=== PATIENT | female | born 1975 | race Caucasian/White ===

== ENCOUNTER 2020-06-12 20:50 | Emergency (ER) | payer OTHER ==
[2020-06-12 21:19] LABS: Bilirubin Negative (Negative); Blood, Urine Negative (Negative); Clarity Clear (Clear); Glucose, Urine (Dipstick) Normal (Negative); Ketone, Urine Negative (Negative); Leukocyte Negative Leu/uL (Negative); Nitrite Negative (Negative); Protein, Urine (Dipstick) Negative (Neg-Trace); Specific Gravity, Urine 1.006 (1.002-1.036); Urobilinogen Normal mg/dL (Less than 2)
[2020-06-12 21:26] LABS: Pregnancy Test - Urine (BHCG) Negative (Negative); Pregu Control Background? CLEAR/WHITE (CLR/WHITE); Pregu Control Bar Appear? YES (CONTROL BAR); Specific Gravity 1.006 (1.002-1.036)
[2020-06-12 21:47] LABS: ALT (SGPT) 34 U/L (8-55); AST (SGOT) 17 U/L (5-34); Albumin 3.1 g/dL (3.5-5.0); Alkaline Phosphatase 148 U/L (40-110); Anion Gap 10 mmol/L (10-20); BUN (Urea Nitrogen) 11 mg/dL (7.0-18.7); Band 4 % (5-11); Bilirubin, Total 0.6 mg/dL (0.2-1.2); Calc. Creatinine Clearance 0 mL/min (70-130); Calcium 8.1 mg/dL (7.8-10.44); Carbon Dioxide 29 mmol/L (22-29); Chloride 102 mmol/L (98-107); Globulin 2.4 g/dL (2.4-3.5); Glucose 106 mg/dL (70-105); Hemoglobin 12.1 g/dL (12.0-16.0); Lymphocytes 8 % (21-51); MDiff Complete? YES; Mean Corpuscular HGB CONC 34.4 g/dL (32.0-36.0); Mean Corpuscular Hemoglobin 29.7 pg (27.0-31.0); Mean Corpuscular Volume 86.5 fL (78.0-98.0); Mean Platelet Volume 8.5 fL (7.4-10.4); Metamyelocyte 1 % (0-0); Monocytes 20 % (0-10); Neutrophil 67 % (42-75); Platelet Count 147 thou/uL (130-400); Platelet Morphology Comment Appears Adequate; Protein, Total 5.5 g/dL (6.0-8.3); RBC Distribution Width 12.4 % (11.5-14.5); Red Blood Cell (RBC) Count 4.07 mill/uL (4.20-5.40); Sodium 138 mmol/L (136-145); White Blood Cell (WBC) Count 7.1 thou/uL (4.8-10.8)
[2020-06-12 21:53] LABS: Potassium 2.9 mmol/L (3.5-5.1)
--- NOTE | 2020-06-12 21:55 | ULT ---
Ultrasound of [facility] upper quadrant: 06/12/2020 COMPARISON:None available HISTORY:Right upper quadrant pain TECHNIQUE: Multiplanar grayscale sonographic imaging of [facility] upper quadrant provided FINDINGS:The pancreas is obscured by bowel gas. The gallbladder is surgically absent. Mild intrahepatic biliary prominence noted on the left. No focal liver lesion. Common bile duct measu res 7-8 mm, within normal limits for a patient status post cholecystectomy. Right kidney measures 12.1 cm in craniocaudal dimension and demonstrates no stone, hydronephrosis, or mass. IMPRESSION:Status post cholecystectomy. Mild prominence of the biliary tree, likely on the basis of p ostoperative status. Correlation with laboratory analysis suggested.
--- NOTE | 2020-06-13 | CT ---
Head CT without contrast: 06/12/2020 HISTORY: Confusion TECHNIQUE: Axial CT imaging at 2.5 mm intervals from vertex through skull base without contrast FINDINGS: The visualized paranasal sinuses and mastoid air cells are well-aerated. No displaced johanny rial fracture, intracranial hemorrhage, midline shift, or mass effect. IMPRESSION: No acute findings.
[2020-06-13] MEDS ORDERED: diphenhydrAMINE 50 MG/ML VIAL ONE (00:47)
[2020-06-13] MEDS ORDERED: Potassium Chloride 20 MEQ TAB ONE (00:47)
[2020-06-13] MEDS ORDERED: Metoclopramide HCl 10 MG/2 ML VIAL ONE (00:47)
[2020-06-13] MEDS ORDERED: Ketorolac Tromethamine 30 MG/ML VIAL ONE (00:47)
[2020-06-13] MEDS ORDERED: methylPREDNISolone Sod Succ/PF 125 MG/2 ML VIAL ONE (04:02)
[2020-06-13] MEDS ORDERED: Acetaminophen 500 MG TAB ONE (04:02)
== END 2020-06-13 05:10 | disposition home or self-care (01) ==
LOC: ERS 20:50
DX: R51.9 Headache, unspecified (principal); R10.11 Right upper quadrant pain; I10 Essential (primary) hypertension; F17.210 Nicotine dependence, cigarettes, uncomplicated; Z79.899 Other long term (current) drug therapy; R11.2 Nausea with vomiting, unspecified; R42 Dizziness and giddiness
CPT/HCPCS: 36415; 70450; 76705; 80053; 81003; 81025; 83690; 85025; 96365; 96375; J1200; J1885; J2765; J2930